=== PATIENT | male | born 1970 | race American Indian/Alaskan Native ===

== ENCOUNTER 2019-09-08 13:59 | Emergency (ER) | payer SELFPAY ==
--- NOTE | 2019-09-08 15:56 | Emergency Department Report ---
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 Patient states that his symptoms started mildly about 1 week ago but has gradually got worse. He denies any particular injury or strenuous activity when it first started. He states that he did start doing some mild exercises (knee raises while sitting in bed) thinking that the swelling and pain could be related to weight gain, but this was after his symptoms started. He does report some mild relief of the swelling when he elevates his leg. He states that the pain is worse with weightbearing and ambulation. He has not tried anything [id number] for pain. He denies any chest pain, shortness of breath or any other symptoms at this time. MD Complaint: joint swelling, joint paint -: week(s) (1) Location: right, other (Ankle ) History of Same: No -: Yes arthralgia Quality: other (Painful ) Consistency: constant Improves with: elevation Worsens with: weight bearing, walking Associated Symptoms: denies other symptoms - Related Data Previous Rx's Medication Instructions Recorded Last Taken Type methylPREDNISolone [Medrol 4MG 4 mg PO DAILY #1 tab.ds.pk 09/08/19 Unknown Rx DOSEPAK (21 tabs)] traMADoL [Ultram] 50 mg PO Q4HR PRN #12 tablet 09/08/19 Unknown Rx Allergies Allergy/AdvReac Type Severity Reaction Status Date / Time No Known Allergies Allergy Unverified 09/08/19 14:00 ED Review of Systems ROS: Stated complaint: (R) ANKLE SWOLLEN Other details as noted in HPI Constitutional: denies: chills, fever Cardiovascular: denies: chest pain, palpitations, dyspnea on exertion, edema, syncope, paroxysmal nocturnal dyspnea Gastrointestinal: denies: nausea, vomiting, diarrhea Musculoskeletal: joint swelling, arthralgia Neurological: denies: headache, weakness, numbness, paresthesias, abnormal gait ED Past Medical Hx - Past Medical History Additional medical history: GULLIAN BARRE 2016 BLLOD CLOTS - Surgical History Past Surgical History?: No - Social History Smoking Status: Never Smoker Substance Use Type: None - Medications Home Medications: Home Medications Medication Instructions Recorded Confirmed Last Taken Type methylPREDNISolone [Medrol 4MG 4 mg PO DAILY #1 tab.ds.pk 09/08/19 Unknown Rx DOSEPAK (21 tabs)] traMADoL [Ultram] 50 mg PO Q4HR PRN #12 tablet 09/08/19 Unknown Rx ED Physical Exam - General Limitations: No Limitations General appearance: alert, in no apparent distress - Head Head exam: Present: atraumatic, normocephalic, normal inspection - Eye Eye exam: Present: normal appearance, PERRL, EOMI Pupils: Present: normal accommodation - Respiratory Respiratory exam: Absent: respiratory distress - Cardiovascular Cardiovascular Exam: Present: regular rate - Extremities Exam Extremities exam: Present: normal inspection, tenderness, joint swelling, other (There is some mild swelling noted to the right ankle mainly lateral aspect of the ankle with moderate tenderness to palpation to the ligaments around the right lateral malleolus. There is some mild swelling to the dorsal aspect of the right foot but there is no tenderness to palpation. Patient has full range of motion of his ankle, but he does have increased pain on dorsiflexion. He has full range of motion of his foot. There is no acute deformity. No erythema, no ecchymosis noted. cap refill and dorsalis pedis pulse normal). Absent: calf tenderness ED Course Vital Signs 09/08/19 09/08/19 14:02 16:57 Temperature 98.3 F Pulse Rate 73 Respiratory 18 18 Rate Blood Pressure 188/118 O2 Sat by Pulse 97 Oximetry ED Medical Decision Making - Radiology Data Radiology results: report reviewed Findings [facility] [address] [place] [address] XRay Report Signed Patient: SOTERO GONZALEZ MR#: [id number] : 1970 Acct:[id number] Age/Sex: 49 / M ADM Date: 09/08/19 Loc: ED Attending Dr: Ordering Physician: TOÑA HILLIARD Date of Service: 09/08/19 Procedure(s): XR ankle 2V RT Accession Number(s): [id number] cc: TOÑA HILLIARD Fluoro Time In Minutes: RIGHT ANKLE 2 VIEWS INDICATION / CLINICAL INFORMATION: Right ankle swelling and pain. COMPARISON: None available. FINDINGS: BONES and JOINT(S): No acute fracture or subluxation. No significant arthritis. SOFT TISSUES: There is mild generalized edema. ADDITIONAL FINDINGS: None. IMPRESSION: Mild right ankle edema without an acute osseous abnormality. Signer Name: Lauri Hernadez MD Signed: 09/08/2019 5:03 PM Workstation Name: [id number] Transcribed By: MICKIE Dictated By: Lauri Hernadez MD Electronically Authenticated By: Lauri collier MD Signed Date/Time: 09/08/19 170 DD/ 00 TD/TT: Findings [facility] [address] [place] [address] Vascular Lab Report Signed Patient: SOTERO GONZALEZ MR#: [id number] : 1970 Acct:[id number] Age/Sex: 49 / M ADM Date: 09/08/19 Loc: ED Attending Dr: Ordering Physician: TOÑA HILLIARD Date of Service: 09/08/19 Procedure(s): VL venous duplex LE RT Accession Number(s): [id number] cc: TOÑA HILLIARD DUPLEX DOPPLER LOWER EXTREMITY VEINS, RIGHT INDICATION: Right lower extremity pain and swelling. History of DVT. TECHNIQUE: Duplex doppler imaging was performed through the veins of the right lower extremity using venous compression and other maneuvers. COMPARISON: No relevant prior imaging study available. FINDINGS: Common Femoral vein: Negative. Superficial Femoral vein: Negative. Popliteal vein: Negative. Calf veins: Negative. Additional findings: A hypoechoic popliteal fossa structure compatible with a Mendoza's cyst measures up to 3 cm. IMPRESSION: 1. No sonographic evidence for DVT in the right lower extremity. Signer Name: Lauri Hernadez MD Signed: 09/08/2019 4:38 PM Workstation Name: [id number] Transcribed By: MICKIE Dictated By: Lauri Hernadez MD Electronically Authenticated By: Lauri Hernadez MD Signed Date/Time: 09/08/191637 DD/ 36 TD/TT: Critical care attestation.: If time is entered above; I have spent that time in minutes in the direct care of this critically ill patient, excluding procedure time. ED Disposition Clinical Impression: Pain and swelling of right ankle Disposition: DC- TO HOME OR SELFCARE Is pt being admited?: No Does the pt Need Aspirin: No Condition: Stable Instructions: Arthralgia (ED) Additional Instructions: Take medications as prescribed. Elevate ankle as often as possible. Use lotus wrap as discussed. Recommend follow up with ortho in 1week if not better. Prescriptions: methylPREDNISolone [Medrol 4MG DOSEPAK (21 tabs)] 4 mg PO DAILY #1 tab.ds.pk traMADoL [Ultram] 50 mg PO Q4HR PRN #12 tablet PRN Reason: Pain Referrals: BRITNEY COX MD [Staff Physician] - 3-5 Days Forms: Work/School Release Form(ED) Time of Disposition: 17:20
[2019-09-08 16:02] VITALS: BP 188/118
--- NOTE | 2019-09-08 16:42 | Vascular Lab Report ---
DUPLEX DOPPLER LOWER EXTREMITY VEINS, RIGHT INDICATION: Right lower extremity pain and swelling. History of DVT. TECHNIQUE: Duplex doppler imaging was performed through the veins of the right lower extremity using venous comp ression and other maneuvers. COMPARISON: No relevant prior imaging study available. FINDINGS: Common Femoral vein: Negative. Superficial Femoral vein: Negative. Popliteal vein: Negative. Calf veins: Negative. Additional findings: A hypoechoic popliteal fossa structure compatible with a Mendoza's cyst measures u p to 3 cm. IMPRESSION: 1. No sonographic evidence for DVT in the right lower extremity. Signer Name: Lauri Hernadez MD Signed: 09/08/2019 4:38 PM Workstation Name: [id number]
[2019-09-08] MEDS: DEXAMETHASONE 4 MG TAB PO ONE (16:56)
[2019-09-08] MEDS: KETOROLAC 10 MG TAB PO ONE (16:57)
--- NOTE | 2019-09-08 17:08 | XRay Report ---
RIGHT ANKLE 2 VIEWS INDICATION / CLINICAL INFORMATION: Right ankle swelling and pain. COMPARISON: None available. FINDINGS: BONES and JOINT(S): No acute fracture or subluxation. No significant arthritis. SOFT TISSUES: There is mild generalized edema. ADDITIONAL FINDINGS: None. IMPRESSION: Mild right ankle edema without an acute osseous abnormality. Signer Name: Lauri Hernadez MD Signed: 09/08/2019 5:03 PM Workstation Name: [id number]
== END 2019-09-08 17:21 | disposition home or self-care (01) ==
LOC: ED 13:59
DX: M25.571 Pain in right ankle and joints of right foot (principal); Z79.899 Other long term (current) drug therapy
CPT/HCPCS: 73600; 93971; 99284; J8540

== ENCOUNTER 2020-06-04 12:57 | Emergency (ER) | payer SELFPAY ==
--- NOTE | 2020-06-04 13:46 | Event Note ---
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 Further treatment and workup at subsequent clinical providers discretion. Patient/guardian urged not to elope from the ED as their condition may be serious if not clinically assessed and managed. Initial orders include: labs, CT, UA, EKG
[2020-06-04] MEDS ORDERED: hydrALAZINE 100 MG TAB PO ONE (13:51)
[2020-06-04 14:38] LABS: Bilirubin,Urine NEG (Negative); Blood,Urine NEG (Negative); Color,Urine Yellow (Yellow); Mucus,Urine 2+ /HPF; Protein,Urine <15 mg/dL mg/dL (Negative)
--- NOTE | 2020-06-04 14:48 | Cat Scan Report ---
CT LUMBAR SPINE WITHOUT CONTRAST HISTORY: Low back pain COMPARISON: None TECHNIQUE: CT images of the lumbar spine were obtained without contrast. Sagittal and coronal reform ats were post-processed.All CT scans at this location are performed using CT dose reduction for ALARA by means of automated exposure control. CONTRAST: None. FINDINGS: Alignment: Normal. No traumatic subluxation. Vertebrae:No significant abnormality. No fracture. Disc Spaces: L1-L2: Shallow midline disc bulging; neuroforamina are normal L2-L3: Normal L3-L4: Normal L4-L5: Broad-based disc protrusion more towards the right side; lateral recesses narrowed bilaterally ; neuroforamina are also narrowed L5-S1: Normal Facet Joints:No significant abnormality. Additional Findings: None IMPRESSION: 1. Disc protrusion towards the right side at L4-L5 disc level; lateral recesses and the neuroforamin a are narrowed Signer Name: Herlinda James MD Signed: 06/04/2020 2:44 PM Workstation Name: [id number]
[2020-06-04 15:44] LABS: Basophils % (Auto) 0.4 % (0.0-1.8); Eosinophils # (Auto) 0.1 K/mm3 (0.0-0.4); Hematocrit 43.3 % (35.5-45.6); Lymphocytes # (Auto) 1.8 K/mm3 (1.2-5.4); Lymphocytes % (Auto) 35.2 % (13.4-35.0); Mean Corpuscular HGB Conc 32 % (32-34); Mean Corpuscular Volume 90 fl (84-94); Monocytes # (Auto) 0.7 K/mm3 (0.0-0.8); Monocytes % (Auto) 13.9 % (0.0-7.3); Platelet Count 143 K/mm3 (140-440); Red Blood Count 4.81 M/mm3 (3.65-5.03); Red Cell Distribution Width 13.2 % (13.2-15.2)
[2020-06-04 15:54] LABS: Alanine Aminotransferase 7 units/L (7-56); Albumin 3.7 g/dL (3.9-5); BUN/Creatinine Ratio 8; Blood Urea Nitrogen 11 mg/dL (9-20); Calcium 8.9 mg/dL (8.4-10.2); Hemolysis Index 4
[2020-06-04 18:32] VITALS: BP 184/108
--- NOTE | 2020-06-04 19:07 | Emergency Department Report ---
ED General Adult HPI - General Chief complaint: Back Pain/Injury Stated complaint: BURNING SENSATION IN BACK; FREQUENT URINATION Time Seen by Provider: 06/04/20 13:46 Source: patient Mode of arrival: Ambulatory Limitations: No Limitations - History of Present Illness Initial comments: Patient is a 50-year-old male presents emergency room complaints of low back pain that began a week ago. He states that it feels like a burning sensation in his lower back. He denies any chest pain, shortness of breath, numbness, weakness, bowel or bladder incontinence, fever, nausea, vomiting, diarrhea, urinary symptoms, saddle numbness. he denies any fall or injury. Patient denies any known history of hypertension and is not on any blood pressure medication. Patient states that he has a history of GBS and was treated at [facility] in 2016, he states that he has not seen a doctor in multiple years. He denies any medication allergies. He is a current every day smoker. - Related Data Previous Rx's Medication Instructions Recorded Last Taken Type methylPREDNISolone [Medrol 4MG 4 mg PO DAILY #1 tab.ds.pk 09/08/19 Unknown Rx DOSEPAK (21 tabs)] traMADoL [Ultram] 50 mg PO Q4HR PRN #12 tablet 09/08/19 Unknown Rx Naproxen [EC-Naprosyn] 500 mg PO BID PRN #14 tablet. 06/04/20 Unknown Rx Prednisone [predniSONE 10 mg 10 mg PO .TAPER #1 tab.ds.pk 06/04/20 Unknown Rx (6-Day Pack, 21 Tabs)] amLODIPine 10 mg PO DAILY #30 tab 06/04/20 Unknown Rx hydroCHLOROthiazide 12.5 mg PO DAILY #30 capsule 06/04/20 Unknown Rx [Hydrochlorothiazide] methOCARBAMOL [Robaxin TAB] 500 mg PO BID PRN #14 tab 06/04/20 Unknown Rx traMADoL [Ultram 50 MG tab] 50 mg PO Q6HR PRN #10 tablet 06/04/20 Unknown Rx Allergies Allergy/AdvReac Type Severity Reaction Status Date / Time No Known Allergies Allergy Unverified 09/08/19 14:00 ED Review of Systems ROS: Stated complaint: BURNING SENSATION IN BACK; FREQUENT URINATION Other details as noted in HPI Comment: All other systems reviewed and negative ED Past Medical Hx - Past Medical History Previous Medical History?: Yes Hx Hypertension: Yes Hx Diabetes: Yes Hx HIV: Yes Additional medical history: ED HARRIS 2016 BLLOD CLOTS - Surgical History Past Surgical History?: No - Social History Smoking Status: Current Every Day Smoker Substance Use Type: None - Medications Home Medications: Home Medications Medication Instructions Recorded Confirmed Last Taken Type methylPREDNISolone [Medrol 4MG 4 mg PO DAILY #1 tab.ds.pk 09/08/19 Unknown Rx DOSEPAK (21 tabs)] traMADoL [Ultram] 50 mg PO Q4HR PRN #12 tablet 09/08/19 Unknown Rx Naproxen [EC-Naprosyn] 500 mg PO BID PRN #14 tablet. 06/04/20 Unknown Rx Prednisone [predniSONE 10 mg 10 mg PO .TAPER #1 tab.ds.pk 06/04/20 Unknown Rx (6-Day Pack, 21 Tabs)] amLODIPine 10 mg PO DAILY #30 tab 06/04/20 Unknown Rx hydroCHLOROthiazide 12.5 mg PO DAILY #30 capsule 06/04/20 Unknown Rx [Hydrochlorothiazide] methOCARBAMOL [Robaxin TAB] 500 mg PO BID PRN #14 tab 06/04/20 Unknown Rx traMADoL [Ultram 50 MG tab] 50 mg PO Q6HR PRN #10 tablet 06/04/20 Unknown Rx ED Physical Exam - General Limitations: No Limitations General appearance: alert, in no apparent distress - Head Head exam: Present: atraumatic, normocephalic - Eye Eye exam: Present: normal appearance - ENT ENT exam: Present: mucous membranes moist - Neck Neck exam: Present: normal inspection, full ROM. Absent: tenderness - Respiratory Respiratory exam: Present: normal lung sounds bilaterally. Absent: respiratory distress, wheezes, rales, rhonchi, stridor, chest wall tenderness, accessory muscle use, decreased breath sounds, prolonged expiratory - Cardiovascular Cardiovascular Exam: Present: regular rate, normal rhythm, normal heart sounds. Absent: systolic murmur, diastolic murmur, rubs, gallop - Back Exam Back exam: Present: normal inspection, full ROM, paraspinal tenderness (right lumbar ), vertebral tenderness (lumbar) - Neurological Exam Neurological exam: Present: alert, oriented X3, CN II-XII intact, normal gait. Absent: motor sensory deficit - Psychiatric Psychiatric exam: Present: normal affect, normal mood - Skin Skin exam: Present: warm, dry, intact ED Course Vital Signs 06/04/20 06/04/20 06/04/20 13:40 13:46 18:32 Temperature 97.9 F Pulse Rate 78 82 Respiratory 18 18 Rate Blood Pressure 212/140 184/108 [Right] O2 Sat by Pulse 83 L 99 97 Oximetry ED Medical Decision Making - Lab Data Result diagrams: 06/04/20 14:39 06/04/20 14:39 - EKG Data EKG shows normal: sinus rhythm, intervals Rate: normal - EKG Data 06/04/20 19:04 LAD LVH no STEMI - Radiology Data Radiology results: report reviewed Ordering Physician: SHERITA HUDSON Date of Service: 06/04/20 Procedure(s): CT lumbar spine wo con Accession Number(s): [id number] cc: SHERITA HUDSON CT LUMBAR SPINE WITHOUT CONTRAST HISTORY: Low back pain COMPARISON: None TECHNIQUE: CT images of the lumbar spine were obtained without contrast. Sagittal and coronal reformats were post-processed.All CT scans at this location are performed using CT dose reduction for ALARA by means of automated exposure control. CONTRAST: None. FINDINGS: Alignment: Normal. No traumatic subluxation. Vertebrae:No significant abnormality. No fracture. Disc Spaces: L1-L2: Shallow midline disc bulging; neuroforamina are normal L2-L3: Normal L3-L4: Normal L4-L5: Broad-based disc protrusion more towards the right side; lateral recesses narrowed bilaterally; neuroforamina are also narrowed L5-S1: Normal Facet Joints:No significant abnormality. Additional Findings: None IMPRESSION: 1. Disc protrusion towards the right side at L4-L5 disc level; lateral recesses and the neuroforamina are narrowed Signer Name: Herlinda James MD Signed: 06/04/2020 2:44 PM Workstation Name: [id number] Transcribed By: BS Dictated By: Herlinda Nogueira MD Electronically Authenticated By: Herlinda Nogueira MD Signed Date/Time: 06/04/20 1444 DD/ 1439 TD/TT: - Medical Decision Making Patient is a 50-year-old male presents emergency room complaints of low back pain that began a week ago. He states that it feels like a burning sensation in his lower back. He denies any chest pain, shortness of breath, numbness, weakness, bowel or bladder incontinence, fever, nausea, vomiting, diarrhea, urinary symptoms, saddle numbness. he denies any fall or injury. Patient denies any known history of hypertension and is not on any blood pressure medication. Patient states that he has a history of GBS and was treated at [facility] in 2016, he states that he has not seen a doctor in multiple years. He denies any medication allergies. He is a current every day smoker. On exam he has midline lumbar and right paraspinal lumbar tenderness palpation, no step-offs, no deformities, no focal neuro deficits. Vitals with elevated blood pressure at 212/140. Patient given p.o. hydralazine and blood pressure significantly improved to 184/108. Labs are normal. Troponin is negative. UA is within normal limits. EKG shows LAD, LVH, no STEMI. CT lumbar spine: 1. Disc protrusion towards the right side at L4-L5 disc level; lateral recesses and the neuroforamina are narrowed. Discussed all results with patient and answered questions. Discussed the importance of close primary care follow-up for monitoring of blood pressure. Discussed the importance of orthopedic/spine follow-up regarding CT findings. Patient will be started on amlodipine and hydrochlorothiazide. Patient also given medications for his back pain/herniated disc. Advised patient Please take medication as prescribed. Do not drive or operate machinery while taking muscle relaxer or pain medication. Increase your water intake. Eat a low-sodium diet. Please keep a blood pressure log and take this to the primary care doctor. It is very important that you follow-up with your primary care doctor. Follow-up with orthopedic/spine doctor. Return to emergency room immediately for any new or worsening symptoms. Critical care attestation.: If time is entered above; I have spent that time in minutes in the direct care of this critically ill patient, excluding procedure time. ED Disposition Clinical Impression: Hypertensive urgency Herniated disc Qualifiers: Spinal region: lumbar Qualified Code(s): M51.26 - Other intervertebral disc displacement, lumbar region Disposition: DC-01 TO HOME OR SELFCARE Is pt being admited?: No Does the pt Need Aspirin: No Condition: Stable Instructions: Hypertension, Adult, [id number]-Yzmc, Herniated Disk, Ibhz-iz-Mhnw, Managing Your Hypertension Additional Instructions: Please take medication as prescribed. Do not drive or operate machinery while taking muscle relaxer or pain medication. Increase your water intake. Eat a low-sodium diet. Please keep a blood pressure log and take this to the primary care doctor. It is very important that you follow-up with your primary care doctor. Follow-up with orthopedic/spine doctor. Return to emergency room immediately for any new or worsening symptoms. Prescriptions: amLODIPine 10 mg PO DAILY #30 tab Naproxen [EC-Naprosyn] 500 mg PO BID PRN #14 tablet.dr PRN Reason: pain hydroCHLOROthiazide [Hydrochlorothiazide] 12.5 mg PO DAILY #30 capsule Prednisone [predniSONE 10 mg (6-Day Pack, 21 Tabs)] 10 mg PO .TAPER #1 tab.ds.pk methOCARBAMOL [Robaxin TAB] 500 mg PO BID PRN #14 tab PRN Reason: pain traMADoL [Ultram 50 MG tab] 50 mg PO Q6HR PRN #10 tablet PRN Reason: Pain , Severe (7-10) Referrals: PRIMARY CAREMD [Primary Care Provider] - 3-5 Days YOAN JACOBS MD [Staff Physician] - 3-5 Days [facility] [Provider Group] - 3-5 Days [facility] [Provider Group] - 3-5 Days EAGLE LUCIANO II, MD [Staff Physician] - 3-5 Days Time of Disposition: 19:05 Print Language: DIVEHI
== END 2020-06-04 19:29 | disposition home or self-care (01) ==
LOC: ED 12:57
DX: I16.0 Hypertensive urgency (principal); M51.26 Other intervertebral disc displacement, lumbar region; E11.9 Type 2 diabetes mellitus without complications; F17.200 Nicotine dependence, unspecified, uncomplicated; Z79.899 Other long term (current) drug therapy
CPT/HCPCS: 36415; 72131; 80053; 81001; 84484; 85025; 93005

== ENCOUNTER 2020-12-23 14:11 | Emergency (ER) | payer SELFPAY ==
[2020-12-23 15:55] VITALS: BP 139/91
== END 2020-12-23 20:00 | disposition left against medical advice (07) ==
LOC: ED 14:11
DX: Z00.8 Encounter for other general examination (principal); Z53.21 Procedure and treatment not carried out due to patient leaving prior to being seen by health care provider

== ENCOUNTER 2020-12-24 14:40 | Emergency (ER) | payer SELFPAY ==
[2020-12-24 17:09] VITALS: BP 127/88
[2020-12-24] MEDS ORDERED: TETANUS,DIPH,PERTUSS(ACELL) VACCINE 0.5 ML SYRINGE IM ONE (17:41)
--- NOTE | 2020-12-24 18:44 | Emergency Department Report ---
ED Lower Extremity HPI - General Chief Complaint: Laceration/Recheck/Suture Stated Complaint: LT FOOT INJURY Time Seen by Provider: 12/24/20 17:10 Source: patient Mode of arrival: Ambulatory Limitations: No Limitations - History of Present Illness Initial Comments: This is a 50-year-old male nontoxic, well nourished in appearance, no acute signs of distress presents to the ED with c/o of left foot injury with laceration that occurred yesterday. Patient was originally seen by me yesterday for a quick triage and needed laceration repair patient stated that he left after initial x-rays. Patient denies any other injuries or trauma. Patient denies getting a tetanus booster yesterday. Patient had a laceration/abrasion after mowing the lawn. Patient denies any numbness, tingling, fever, chills, nausea, vomiting, chest pain, shortness of breath, headache, stiff neck. Patient denies any joint swelling or joint redness. Patient denies decreased range of motion. Patient stated has decreased gait due to pain. Patient denies any allergies or significant past medical history. MD Complaint: foot injury -: days(s) (1) Injury: Foot: Left Place: street/outdoors Severity: mild Severity scale (0 -10): 8 Improves With: immobilization Worsens With: weight bearing, movement, palpation Associated Symptoms: able to partially bear weight. denies: snap/pop sensation, swelling, numbness, tingling, unable to bear weight - Related Data Previous Rx's Medication Instructions Recorded Last Taken Type methylPREDNISolone [Medrol 4MG 4 mg PO DAILY #1 tab.ds.pk 09/08/19 Unknown Rx DOSEPAK (21 tabs)] traMADoL [Ultram] 50 mg PO Q4HR PRN #12 tablet 09/08/19 Unknown Rx Naproxen [EC-Naprosyn] 500 mg PO BID PRN #14 tablet. 06/04/20 Unknown Rx Prednisone [predniSONE 10 mg 10 mg PO .TAPER #1 tab.ds.pk 06/04/20 Unknown Rx (6-Day Pack, 21 Tabs)] amLODIPine 10 mg PO DAILY #30 tab 06/04/20 Unknown Rx hydroCHLOROthiazide 12.5 mg PO DAILY #30 capsule 06/04/20 Unknown Rx [Hydrochlorothiazide] methOCARBAMOL [Robaxin TAB] 500 mg PO BID PRN #14 tab 06/04/20 Unknown Rx traMADoL [Ultram 50 MG tab] 50 mg PO Q6HR PRN #10 tablet 06/04/20 Unknown Rx Sulfamethoxazole/Trimethoprim 1 each PO BID #14 tablet 12/24/20 Unknown Rx [Bactrim DS TAB] Allergies Allergy/AdvReac Type Severity Reaction Status Date / Time No Known Allergies Allergy Unverified 09/08/19 14:00 ED Review of Systems ROS: Stated complaint: LT FOOT INJURY Other details as noted in HPI Comment: All other systems reviewed and negative Constitutional: denies: chills, fever Eyes: denies: eye pain, eye discharge, vision change ENT: denies: ear pain, throat pain Respiratory: denies: cough, shortness of breath, wheezing Cardiovascular: denies: chest pain, palpitations Endocrine: no symptoms reported Gastrointestinal: denies: abdominal pain, nausea, diarrhea Genitourinary: denies: urgency, dysuria Musculoskeletal: denies: back pain, joint swelling, arthralgia Skin: denies: rash, lesions Neurological: denies: headache, weakness, paresthesias Psychiatric: denies: anxiety, depression Hematological/Lymphatic: denies: easy bleeding, easy bruising ED Past Medical Hx - Past Medical History Previous Medical History?: Yes Hx Hypertension: Yes Hx Diabetes: Yes Hx HIV: Yes Additional medical history: GUMARILYN BARRE 2016 [employer] CLOTS - Social History Smoking Status: Current Every Day Smoker Substance Use Type: None - Medications Home Medications: Home Medications Medication Instructions Recorded Confirmed Last Taken Type methylPREDNISolone [Medrol 4MG 4 mg PO DAILY #1 tab.ds.pk 09/08/19 Unknown Rx DOSEPAK (21 tabs)] traMADoL [Ultram] 50 mg PO Q4HR PRN #12 tablet 09/08/19 Unknown Rx Naproxen [EC-Naprosyn] 500 mg PO BID PRN #14 tablet. 06/04/20 Unknown Rx Prednisone [predniSONE 10 mg 10 mg PO .TAPER #1 tab.ds.pk 06/04/20 Unknown Rx (6-Day Pack, 21 Tabs)] amLODIPine 10 mg PO DAILY #30 tab 06/04/20 Unknown Rx hydroCHLOROthiazide 12.5 mg PO DAILY #30 capsule 06/04/20 Unknown Rx [Hydrochlorothiazide] methOCARBAMOL [Robaxin TAB] 500 mg PO BID PRN #14 tab 06/04/20 Unknown Rx traMADoL [Ultram 50 MG tab] 50 mg PO Q6HR PRN #10 tablet 06/04/20 Unknown Rx Sulfamethoxazole/Trimethoprim 1 each PO BID #14 tablet 12/24/20 Unknown Rx [Bactrim DS TAB] ED Physical Exam - General Limitations: No Limitations General appearance: alert, in no apparent distress - Head Head exam: Present: atraumatic, normocephalic - Eye Eye exam: Present: normal appearance - Neck Neck exam: Present: normal inspection, full ROM. Absent: lymphadenopathy - Respiratory Respiratory exam: Absent: respiratory distress - Cardiovascular Cardiovascular Exam: Present: regular rate - Extremities Exam Extremities exam: Present: normal inspection, full ROM, tenderness, normal capillary refill. Absent: joint swelling, calf tenderness - Expanded Lower Extremity Exam Left Hip exam: Present: normal inspection, full ROM. Absent: tenderness, swelling Upper Leg exam: Present: normal inspection, full ROM. Absent: tenderness, swelling Knee exam: Present: normal inspection, full ROM. Absent: tenderness, swelling Lower Leg exam: Present: normal inspection, full ROM. Absent: tenderness, swelling Ankle exam: Present: normal inspection, full ROM. Absent: tenderness, swelling, abrasion, laceration, ecchymosis, deformity, crepidus, dislocation, erythema, anterior draw sign Foot/Toe exam: Present: normal inspection, full ROM, tenderness, abrasion, laceration. Absent: swelling, ecchymosis, deformity, crepidus, dislocation, erythema, amputation, puncture wound, foreign body, calcaneal tenderness, tenderness at base of 5th metatarsal, nail avulsion, subungual hematoma Neuro vascular tendon exam: Present: no vascular compromise Gait: Positive: observed and limited by pain 1 - Superficial 1 cm laceration present here 2 - Abrasion present here - Back Exam Back exam: Present: normal inspection, full ROM - Neurological Exam Neurological exam: Present: alert, oriented X3, normal gait - Psychiatric Psychiatric exam: Present: normal affect, normal mood - Skin Skin exam: Present: warm, dry, intact, normal color. Absent: rash ED Course Vital Signs 12/24/20 17:08 Temperature 98.8 F Pulse Rate 67 Respiratory 20 Rate Blood Pressure 127/88 O2 Sat by Pulse 100 Oximetry - Reevaluation(s) Reevaluation #1: 12/24/20 18:42 Patient is speaking in full sentences with no signs of distress noted. ED Lower Extremity MDM - Radiology Data [facility] [address] [place] [address] XRay Report Signed Patient: SOTERO GONZALEZ MR#: [id number] : 1970 Acct:[id number] Age/Sex: 50 / M ADM Date: 12/23/20 Loc: ED Attending Dr: Ordering Physician: FOREIGN GRAHAM NP Date of Service: 12/23/20 Procedure(s): XR foot 3+V LT Accession Number(s): [id number] cc: FOREIGN GRAHAM NP Fluoro Time In Minutes: LEFT FOOT 3 VIEW(S) INDICATION / CLINICAL INFORMATION: foot lac COMPARISON: None available. FINDINGS: BONES / JOINT(S): No acute fracture or subluxation. Small ossific densities at the tip of the medial malleolus likely represent sequela of remote injury. Mild degenerative changes of the great toe MTP joint and degenerative changes of the fifth tarsometatarsal joint. SOFT TISSUES: Soft tissue laceration at the medial foot. No radiopaque foreign body. ADDITIONAL FINDINGS: None. Signer Name: Randal Kahn MD Signed: 12/23/2020 4:29 PM Workstation Name: [id number] Transcribed By: DB Dictated By: RANDAL KAHN MD Electronically Authenticated By: RANDAL KAHN MD Signed Date/Time: 12/23/201628 DD/ 26 TD/TT: - Medical Decision Making 51-year-old male that presents with a laceration that occurred yesterday. X-ray has been obtained yesterday and dictated by radiologist. Patient is notified of the x-ray results with no questions noted by the patient. Patient did receive a tetanus booster in ER. Area has been cleaned and sterile dressing has been applied. Patient was educated on proper wound care. Laceration occurred more than 24 hours so unable to suture the laceration at this time. Patient is discharged with Bactrim. Patient was instructed to follow-up with a primary care doctor in 3-5 days or if symptoms worsen and continue return to emergency room as soon as possible. At time of discharge, the patient does not seem toxic or ill in appearance. No acute signs of distress noted. Patient agrees to discharge treatment plan of care. No further questions noted by the patient. Critical care attestation.: If time is entered above; I have spent that time in minutes in the direct care of this critically ill patient, excluding procedure time. ED Disposition Clinical Impression: Abrasion, left foot, initial encounter Laceration of left foot Qualifiers: Encounter type: initial encounter Qualified Code(s): S91.312A - Laceration without foreign body, left foot, initial encounter Injury of left foot Qualifiers: Encounter type: initial encounter Qualified Code(s): S99.922A - Unspecified injury of left foot, initial encounter Disposition: HOME / SELF CARE / HOMELESS Is pt being admited?: No Does the pt Need Aspirin: No Condition: Stable Instructions: Wound Care, Adult Additional Instructions: Follow-up with a primary care doctor in 3-5 days or if symptoms worsen and continue return to emergency room as soon as possible. Prescriptions: Sulfamethoxazole/Trimethoprim [Bactrim DS TAB] 1 each PO BID #14 tablet Referrals: KAREN MOY MD [Referring] - 3-5 Days YOAN JACOBS MD [Staff Physician] - 3-5 Days Time of Disposition: 18:44
== END 2020-12-24 18:44 | disposition home or self-care (01) ==
LOC: ED 14:40
DX: S91.312A Laceration without foreign body, left foot, initial encounter (principal); I10 Essential (primary) hypertension; E11.9 Type 2 diabetes mellitus without complications; F17.200 Nicotine dependence, unspecified, uncomplicated; Z79.899 Other long term (current) drug therapy; W22.8XXA Striking against or struck by other objects, initial encounter; Y93.89 Activity, other specified; Y92.89 Other specified places as the place of occurrence of the external cause; Y99.8 Other external cause status
CPT/HCPCS: 90471; 90715; 99282

== ENCOUNTER → 2021-05-27 | Emergency (ER) | payer SELFPAY ==
[2021-05-27 17:17] VITALS: BP 118/74
--- NOTE | 2021-06-02 20:53 | Electrocardiograph Report ---
[facility] Test Date: 2021-05-27 Test Time: 17:22:34 Pat Name: SOTERO GONZALEZ Department: Room: Gender: M Merchandise Pickup/Receiving Associate: INGE : 1970 Requested By: ESTEFANÍA JACOBS Order Number: [id number] Reading MD: Allan Yoon Measurements Intervals Kell Rate: 64 P: 60 CT: 176 QRS: 14 QRSD: 89 T: 59 QT: 370 QTc: 382 Interpretive Statements Sinus rhythm ST elev, probable normal early repol pattern No previous ECG available for comparison Electronically Signed On 06-02-2021 20:53:27 EST by Allan Yoon
== END ==
LOC: ED 16:38
DX: R07.9 Chest pain, unspecified (principal); Z53.21 Procedure and treatment not carried out due to patient leaving prior to being seen by health care provider
CPT/HCPCS: 93005